=== PATIENT | female | born 1965 | race Caucasian/White ===

== ENCOUNTER 2018-08-25 11:47 | Observation (INO) | payer MEDICARE, SELFPAY ==
[2018-08-25] VITALS (10 sets, daily range): BP systolic 111–154; BP diastolic 69–80; PULSE 66–89; RESP 13–18; TEMP 35.7–37.1; O2SAT 96–100; BMI 42.0; BMI 41.7
--- NOTE | 2018-08-25 12:07 | RAD_ITS ---
STUDY: X-RAY CHEST REASON FOR EXAM: Female, 53 years old. Left upper extremity weakness. TECHNIQUE: Single frontal view of the chest. COMPARISON: Portable AP upright chest x-ray November 01, 2016. FINDINGS: The right chest wall Port-A-Cath seen on previous study has since been removed. Clusters of surgical clips in the soft tissues of the chest roper/breast again noted. The left breast shadow is smaller than the right. The lungs are moderately expanded. There is vaguely defined focal increased density in the left midlung, an area of borderline confluent stranding densities on previous study. There is subsegmental crowding in the medial right base. There is no demonstrated pleural abnormality. Normal size heart. Normal mediastinum and herson. Normal visualized pulmonary arteries. There is faint atherosclerotic calcification of the aortic arch. Normal visualized thoracic spine. Normal visualized ribs, clavicles, and shoulders. Surgical clips consistent with prior cholecystectomy project in the right upper quadrant of the abdomen. There are additional surgical clips projecting randomly in the left upper quadrant. RAD/Chest 1 View IMPRESSION: 1. Vague left midlung density, which may be a site of chronic change. Active infection or other pathology difficult to exclude. 2. Right chest wall Port-A-Cath has been removed since previous study. Postsurgical changes in the bilateral chest roper again noted. Electronically Signed: Franco Grimaldo MD at 13:23 EDT , Service support ,
--- NOTE | 2018-08-25 12:07 | CT_ITS ---
STUDY: CT BRAIN WITHOUT CONTRAST REASON FOR EXAM: Female, 53 years old. Left paresthesia. History of breast cancer, asthma, cholecystectomy. RADIATION DOSAGE (If Supplied By Facility): CTDIvol = ( 44.99 ) mGy, DLP = ( 728.62 ) mGycm TECHNIQUE: Transaxial CT imaging of the brain was performed without administration of intravenous contrast material. Individualized dose optimization techniques were used for this CT. COMPARISON: Axial images noncontrast CT brain November 01, 2016. FINDINGS: Normal soft tissue structures. Normal calvarium. Normal size ventricles and extra-axial spaces for the patient's age. Normal white matter tracts of the cerebral hemispheres. Normal basal ganglia and thalami. Normal brainstem. Normal cerebellum. There is no intracranial hemorrhage. There are no findings of an acute ischemic infarction. There is mild mucoperiosteal thickening in the bilateral maxillary sinuses, the right ethmoid air cells, the anterior margin of the right sphenoid sinus, and inferior recess of the right frontal sinus. CT/Brain/Head without Contrast IMPRESSION: 1. Normal unenhanced CT scan of the brain. 2. Chronic paranasal sinusitis, as described. Electronically Signed: Franco Grimaldo MD at 13:20 EDT , Service support ,
--- NOTE | 2018-08-25 12:07 | EKG12_ITS ---
Test Reason : NUMBNESS N TINGLING Blood Pressure : / mmHG Vent. Rate : 079 BPM Atrial Rate : 079 BPM P-R Int : 174 ms QRS Dur : 076 ms QT Int : 402 ms P-R-T Axes : 044 -07 036 degrees QTc Int : 460 ms Normal sinus rhythm Poor R- wave progression Inferior [place], age undetermined, cannot be excluded Abnormal ECG Confirmed by MARYANNE BIGGS, AUNG ([id number]), clinical editor SHAUNA DAS ([id number]) on 08/26/2018 12:30:11 PM Referred By: Gavin Astudillo Confirmed By:AUNG MADDEN MD
--- NOTE | 2018-08-25 12:39 | ED.DCSUM_ITS ---
History of Present Illness Chief Complaint: Numb/Ting Narrative: Patient presenting for evaluation secondary to numbness. Patient reports that about 3:00 this morning when she was getting ready for work she started to notice that she was having left-sided numbness. She reports that this was associated with numbness of the left side of her face, left side of her tongue, and a fullness feeling of her tongue. She also reports that she had numbness in her fingers on the left, and her left lower leg. It was not really associated with any weakness. She denies any visual changes or speech difficulty. Patient has a underlying history of diabetes and hypertension. She does report that about 2 years ago she had a presentation of symptoms similar on the right which she was told was secondary to either a TIA or radiculopathy. She denies any history of stroke. She denies any recent head injuries. Review of systems otherwise negative. Past Medical History - Allergies and Home Meds Allergies/Adverse Reactions: Allergies atropine [From Lomotil] Allergy (Severe, Verified 08/25/18 14:56) Hives diphenoxylate [From Lomotil] Allergy (Severe, Verified 08/25/18 14:56) Hives SURGICAL ROSA Allergy (Uncoded 08/25/18 11:50) Swelling Smoking Status: Never smoker - Family History Maternal Family History: Family History (Last Reviewed 08/25/18 @ 14:32 by Gavin Astudillo DO) Unknown CVA (cerebral vascular accident) Cancer Kidney disease Hypertension High cholesterol Diabetes Asthma Arthritis Review of Systems All systems negative except as indicated General: Denies: Fever Eyes: Denies: Visual changes - bilaterally Cardiovascular: Denies: Chest pain Musculoskeletal: Denies: Myalgias Neurological: Reports: Parasthesia, Numbness. Denies: Headache, Weakness [id number] Vital Signs/Narrative: Vital Signs Temp Pulse Resp BP Pulse Ox 08/25/18 12:38 97 08/25/18 12:29 81 13 111/72 96 08/25/18 11:48 96.3 F L 89 16 154/80 H 97 - NIHSS Level of Consciousness: Alert Ask Patient Current Month & Age: Both correct Ask Patient fo Close Eyes & Make a Fist: Performs both tasks correctly. Lateral Gaze: Normal [id number] eye movement Visual Calderón: Normal visual calderón Facial Weakness: Normal symmetrical movements Arm Weakness - Left: No drift Arm Weakness - Right: No drift Leg Weakness - Left: No drift Leg Weakness - Right: No drift Coordination: Normal or no movement Sensation (feeling): Decreased Sensation - Decreased sensation of the left side of the face, and the left leg Speech (content): Correct full sentences Speech (slurring): No slurring Neglect: Sees & feels when both sides tested at once Total: 1 General: Well nourished, Well developed Head: Normocephalic, Atraumatic Eyes: Perrl, EOMI ENT: Moist mucous membranes Neck: Supple, Nontender Cardiovascular: Regular rate, Regular rhythm, No murmurs Respiratory: No distress, CTA bilaterally Abdomen: Soft, Nontender Back: Nontender, Normal Inspection Extremities: No edema Skin: Normal color, No rash Neurological: Alert, Oriented x3 Psychological: Normal affect Diagnostic/Tx/Re-eval - EKG Follow-up EKG Interpretation: - - Sinus rhythm of [address] segments, normal T waves. No evidence of acute ischemia or arrhythmia. - Medical Decision Making Patient presented secondary to left-sided numbness. Her NIH stroke scale is 1, a stroke team was not activated. Stroke work-up was obtained and was ultimately found to be negative including CT brain, EKG, CBC chemistry and coagulation studies. Given the persistence of the patient's symptoms and the fact that she has never had a stroke work-up in the past believe that she warrants admission. I discussed this with the hospitalist. ED Disposition - Plan for ED Patient: Disposition: Acute Care [facility] Diagnosis: Numbness
[2018-08-25 12:46] LABS: Bedside Glucose 204 mg/dL (70-110)
[2018-08-25 12:49] LABS: Absolute Lymphocyte Count 1.57 X10^3/ul (0.83-4.51); Absolute Neutrophil Count 2.8 X10^3/uL (2.0-7.7); Basophil# 0.02 X10^3/uL; Basophil% 0.4 % (0-1); Eosinophil# 0.42 X10^3/uL; Eosinophils% 8.3 % (0-5); Hematocrit 38.8 % (37-47); Hemoglobin 12.9 g/dl (12.0-15.0); Lymphocyte # 1.57 X10^3/ul (4.0); Lymphocyte % 31.2 % (19-41); Mean Corp Hgb Conc 33.2 g/gl (32-36); Mean Corpuscular Hgb 28.3 pg (27.0-32.0); Mean Corpuscular Volume 85.1 fL (81-99); Monocyte# 0.19 X10^3/uL; Monocyte% 3.8 % (0-10); Neutrophil # 2.83 X10^3/uL (2.7-7.7); Neutrophil % 56.1 % (47-70); POSITIVE COUNT NO; POSITIVE DIFFERENTIAL NO; POSITIVE MORPHOLOGY NO; Platelet Count 227 K/mm3 (150-450); RBC Distribution Width CV 13.3 % (11.6-14.6); Red Blood Count 4.56 M/mm3 (4.2-5.4)
[2018-08-25 12:58] LABS: Prothrombin Time (Protime)PT. 13.2 SECONDS (11.7-14.9)
[2018-08-25 12:59] LABS: Partial Thromboplast Time 27.1 Seconds (24.1-36.2)
[2018-08-25 13:05] LABS: Anion Gap 8 (5-15); BUN 17 mg/dL (7-18); BUN/Creat Ratio 25.4 RATIO (10-20); Calcium,Total 8.5 mg/dL (8.5-10.1); Chloride 106 mmol/L (98-107); Creatinine, Serum 0.67 mg/dL (0.55-1.02); EST Glomerular Filtration Rate 98 mL/min (>60); Est Glom Filt Rate - Afr Amer 119 mL/min (>60); Estimated Creatinine Clearance 73.28 ml/min; Glucose 213 mg/dL (74-106); Potassium 3.7 mmol/L (3.5-5.1); Sodium Level 144 mmol/L (136-145)
--- NOTE | 2018-08-25 14:29 | HP.PCM_ITS ---
Problem List (1) CVA (cerebral vascular accident) Status: Acute Qualifiers: CVA mechanism: unspecified Qualified Code(s): I63.9 - Cerebral infarction, unspecified History of Present Illness Date of Admission: 08/25/18 Chief Complaint: left sided paresthesias. The patient is a 53 year old F presents today with left-sided paresthesias. Patient was in her normal state of health got up this morning to get ready for work and then noted that her left side of her face was numb and her tongue felt heavy. Patient also noted numbness and tingling in her left upper and lower extremities. Patient states that she has had a headache as well since yesterday, typically does not get headaches. States that her headache is frontal as well as posterior. Patient is never had a stroke before. Patient presented to the emergency room and underwent a work-up that was unremarkable. The hospital service was contacted for admission for further stroke evaluation. [] Past Medical History Medical History: Medical History (Last Reviewed 08/25/18 @ 14:32 by Gvain Astudillo DO) Anxiety F41.9 Arthritis M19.90 Asthma J45.909 Back problem M53.9 Breast cancer C50.919 Carpal tunnel syndrome G56.00 Chronic headaches R51 Depression F32.9 Diabetes type 2, controlled E11.9 Gallstones K80.20 History of pneumonia Z87.01 Vision problems H54.7 d2 deficiency hx frequent falls Allergies atropine [From Lomotil] Allergy (Severe, Verified 08/25/18 11:50) Unknown diphenoxylate [From Lomotil] Allergy (Severe, Verified 08/25/18 11:50) Unknown SURGICAL ROSA Allergy (Uncoded 08/25/18 11:50) Swelling Home Medications: Ambulatory Orders Medication Instructions Recorded Albuterol IH (ProAir) [Proair Hfa 2 puff INHALATION Q4H PRN PRN 11/01/16 (SP)Vent Pts] Anastrozole [Arimidex] 1 mg PO DAILY 11/01/16 Ergocalciferol [Vitamin D] 50,000 unit PO TUFR 11/01/16 Fluoxetine [Prozac] 20 mg PO BID 11/01/16 Glimepiride [Amaryl] 2 mg PO DAILY 11/01/16 Meloxicam [Mobic] 15 mg PO DAILY 11/01/16 Metformin HCl 500 mg PO BID 11/01/16 Multivitamins,Ther W-Minerals 1 tab PO DAILY 11/01/16 [Multivitamin With Minerals] Omeprazole [Prilosec] 20 mg PO BID 11/01/16 busPIRone [Buspar] 15 mg PO TID 11/01/16 acetaminophen 325 mg capsule 500 mg PO Q4H PRN 02/03/17 blood sugar diagnostic strips See Dose Instructions .ROUTE 02/03/17 .MEDSUPPLY #20 ea blood-glucose meter kit See Dose Instructions .ROUTE 02/03/17 .MEDSUPPLY #1 ea fluoxetine 40 mg capsule 40 mg PO QDAY 02/03/17 ibuprofen 200 mg capsule 200 mg PO Q4H PRN cap 02/03/17 insulin glargine (U-100) 100 44 unit SC QHS ml 02/03/17 unit/mL (3 mL) subcutaneous pen ketoconazole 2 % topical cream 1 applic TOPICAL QDAY 02/03/17 pen needle, diabetic 31 gauge x See Dose Instructions .ROUTE 02/03/1707/09 .MEDSUPPLY #30 ea Surgical History: Surgical History (Last Reviewed 08/25/18 @ 14:32 by Gavin Astudillo DO) H/O bilateral mastectomy Z98.890, Z90.13 H/O hernia repair Z98.890, Z87.19 H/O: Z98.891 History of tonsillectomy Z98.890, Z90.89 Hx of cholecystectomy Z98.890, Z90.49 Status post bilateral breast reconstruction Z98.890 Smoking Status: Never smoker - *Family History Maternal Family History: Family History (Last Reviewed 08/25/18 @ 14:32 by Gavin Astudillo DO) Unknown CVA (cerebral vascular accident) Cancer Kidney disease Hypertension High cholesterol Diabetes Asthma Arthritis Review of Systems Constitutional: Denies: Chills, Fever, Weight Change Eyes: Reports: Blurred vision - Chronic but does appear to be worse today. Denies: Double vision HEENT: Denies: Head Aches, Sinus Congestion, Sinus Drainage Cardiovascular: Denies: Chest Pain, Palpitations Respiratory: Denies: Cough, Shortness of breath at rest, Sputum production Gastrointestinal: Denies: Abdominal Pain, Nausea, Vomiting Genitourinary: Denies: Dysuria Musculoskeletal: Denies: Joint Pain, Joint Tenderness Skin: Denies: Rash, Wounds Neurological: Reports: Blurred vision. Denies: Balance problems, Double vision, Change in Speech Psychiatric: Reports: Anxiety, Depression Endocrine: Denies: Change in Body Habitus, Heat/ Cold Intolerance Hematologic/ Lymphatic: Denies: Easy Bruising, Easy Bleeding, Hx of blood clot Comment: A 10 point review of systems were negative except as mentioned in the history of present illness and the other review of systems. VTE Information - Inpt Only VTE Present on Admission: No VTE Mechan Device Prophylaxis: None VTE Pharm Prophylaxis ordered?: No Reason prophylaxis not ordered:: Procedure Not Indicated Patient Problems: Active and Suspected Problems (Last Reviewed 02/04/17 @ 07:56 by Claudia Lee) CVA (cerebral vascular accident) (Acute) - Physical Exam General: Alert, No apparent distress HEENT: Atraumatic, PERRLA, EOMI, Normocephalic Oral: Moist Mucosa, No Gingival or Mucosal Lesions/ Ulcerations, - - Edentulous Neck: Negative Carotid Bruits, No Nuchal Rigidity, Thyroid Normal Size and Texture Lungs: Clear to auscultation, Normal air movement, No rhonchi, No wheeze, No rales Cardiovascular: Regular rate, Regular Rhythm, Normal S1, Normal S2, No murmurs Abdomen: Bowel Sounds Present, Soft, Non Tender, Non-Distended, No Hepato- splenomegaly Extremities: No edema, No Calf Tenderness Skin: No rashes, No breakdown Musculoskeletal: No Tenderness to Palpation of Joints or Extremities, No Muscle Wasting Lymphatic: No Cervical, Supraclavicular, or Inguinal Adenopathy Neurological: Cranial nerves II-XII grossly intact, Motor Exam 5/5 strength throughout - Strength 5 out of 5 in right upper extremity and right lower extremity was 4 out of 5 with in the left upper and left lower extremity was just some very mild unsteadiness, Coordination normal Psych/Mental Status: Normal Affect, Appropriate Vital Signs Temp Pulse Resp BP Pulse Ox 35.7 C L 78 16 125/69 H 97 08/25/18 11:48 08/25/18 12:38 08/25/18 12:38 08/25/18 12:38 08/25/18 12:38 Oxygen Delivery Method Room Air Weight: 100.8 kg Body Mass Index (BMI) 42.0 Finger Stick Blood Glucose 204 Laboratory Tests Past 24 Hrs 08/25/18 08/25/18 08/25/18 12:29 12:30 12:30 WBC 5.0 RBC 4.56 Hgb 12.9 Hct 38.8 MCV 85.1 MCH 28.3 MCHC 33.2 RDW 13.3 RDW Differential 41.0 Plt Count 227 MPV 9.0 Immature Gran % (Auto) 0.200 Neut % (Auto) 56.1 Lymph % (Auto) 31.2 [place] % (Auto) 3.8 Eos % (Auto) 8.3 H Baso % (Auto) 0.4 Absolute Neuts (auto) 2.8 Absolute Lymphs (auto) 1.57 Total Counted Not Reportable PT 13.2 INR 1.0 APTT 27.1 Sodium Potassium Chloride Carbon Dioxide Anion Gap BUN Creatinine Estim Creat Clear Calc Est GFR (MDRD) Af Amer Est GFR (MDRD) Non-Af BUN/Creatinine Ratio Glucose Calcium Troponin I POC Glucose 204 H 08/25/18 12:30 WBC RBC Hgb Hct MCV MCH MCHC RDW RDW Differential Plt Count MPV Immature Gran % (Auto) Neut % (Auto) Lymph % (Auto) [place] % (Auto) Eos % (Auto) Baso % (Auto) Absolute Neuts (auto) Absolute Lymphs (auto) Total Counted PT INR APTT Sodium 144 Potassium 3.7 Chloride 106 Carbon Dioxide 30.0 Anion Gap 8 BUN 17 Creatinine 0.67 Estim Creat Clear Calc 73.28 Est GFR (MDRD) Af Amer 119 Est GFR (MDRD) Non-Af 98 BUN/Creatinine Ratio 25.4 H Glucose 213 H Calcium 8.5 Troponin I < 0.015 POC Glucose POC Glucose 08/25/18 12:29 POC Glucose 204 H EKG reviewed and showed normal sinus rhythm with no acute changes Clinical Impression(s) from Imaging Studies Brain CT 08/25/18 12:07 IMPRESSION: 1. Normal unenhanced CT scan of the brain. 2. Chronic paranasal sinusitis, as described. Electronically Signed: Franco Grimaldo MD at 13:20 EDT , Service support , Chest X-Ray 08/25/18 12:07 IMPRESSION: 1. Vague left midlung density, which may be a site of chronic change. Active infection or other pathology difficult to exclude. 2. Right chest wall Port-A-Cath has been removed since previous study. Postsurgical changes in the bilateral chest roper again noted. Electronically Signed: Franco Grimaldo MD at 13:23 EDT , Service support , Assessment/Plan All Active Problems (Last Reviewed 02/04/17 @ 07:56 by Claudia Lee) CVA (cerebral vascular accident) (Acute) Diabetes type 2, uncontrolled (Acute) 1. Suspected acute stroke * Patient with left-sided paresthesias and weakness * Given patient's risk factors, family history and diabetes, we will proceed w ith the remainder of stroke work-up: That will include MRI of the brain, MRA of the head neck, echocardiogram, physical, occupational, and speech therapies. Neurology consultation. * Additionally, we will check fasting lipid panel * Will start patient on aspirin * Patient did have an CTA of her head neck back in 2017 that did show minimal plaque at the origin of the right ICA at that time 2. Diabetes mellitus type 2 * Continue with her home medications * Add sliding scale insulin 3. VTE prophylaxis: As patient is observation status, she is low risk. Therefore VTE prophylaxis not indicated at this time. Code Visit OBSV E&M: 28014 Initial observation care L3
--- NOTE | 2018-08-25 14:37 | CASEMGMT ---
RN CM Assessment Introduced role of RN CM to patient.? Patient is alert, oriented and able?to participate in RN CM Assessment. ?Care providers, pharmacy, and demographics verified. Presentation: Lt side numbness started today around 0300 Admit Dx: Lt Side Paresthesias Re-Admit: No Barriers/Issues: None PCP: Jada Burch Specialists: ONC- Dr Gunter & Lanie Bob, ASSISTANT PRINCIPAL. Endo- Dr Boaz Ojeda [facility] Rx Benefit:?Yes LNOK: Brother Darrin Rae LW/HPOA: No, Would like information Living Arrangements:?Lives alone in a Mobile Home, 3 steps to enter home. ADL?s: Independent with ambulation and ADLs Transportation: Drives, drove self to hospital and plans to drive on [place] DME: CPAP- has not used x2 months, states has a nasal one and it she feels like she cannot breathe, states needs to contact the agency but cannot recall the company name from where she got it. Glucometer. HHC: None SNF: None Goal: Home, does not think will have any needs. Denies questions/concerns. Aware CM remains available for any emerging needs. DC PLAN: Home with no anticipated needs identified at this time. LISY Wood
--- NOTE | 2018-08-25 15:02 | ECHOCS_ITS ---
Reason For Study: TIA/CVA Procedure This was a 2D Doppler, Color Flow transthoracic echocardiogram. Contrast injection was performed. Strain not performed due to technically difficult study. Exam performed portable in patient room. Left Ventricle Normal size and thickness. The estimated ejection fraction is 65 %. Stage 1 diastolic dysfunction. No regional wall motion abnormalities noted. Right Ventricle Normal size and thickness. Normal systolic function. Atria Normal left atrium. Normal right atrium. Normal atrial septum. Bubble contrast study negative for right to left interatrial shunt. Mitral Valve The mitral valve is structurally normal. No prolapse or stenosis seen. Tricuspid Valve Normal tricuspid valve. Trivial tricuspid valve insufficiency. Right ventricular systolic pressure estimated to be 26 mmHg. Aortic Valve Normal aortic valve. Trisinus/trileaflet aortic valve. Pulmonic Valve Normal pulmonic valve. Great Vessels Normal aortic root. Normal arch. Normal inferior vena cava. Inferior vena cava collapse with sniff. Pericardium/Pleural No pericardial effusion. Medication Performed a rapid injection of agitated mix of 9 cc saline and 1cc air to assess for atrial septal defect. Diluted definity 3ml given slow IV push to enhance endocardial definition. MMode/2D Measurements & Calculations LVIDd: 4.4 cm IVSd: 1.1 cm Ao root diam: 2.7 cm LVIDs: 2.7 cm LVPWd: 0.82 cm RVDd: 4.1 cm FS: 39.2 % LAV(MOD-bp): 46.7 ml LVAd ap4: 28.1 cm2 SV(MOD-sp4): 56.9 ml LAV(MOD-bp) Indexed: 23.7 ml/m2 EDV(MOD-sp4): 85.8 ml LAV(MOD-sp2): 53.2 ml EDV(sp4-el): 90.4 ml LAV(MOD-sp4): 40.5 ml LVAs ap4: 14.9 cm2 ESV(MOD-sp4): 28.9 ml ESV(sp4-el): 30.0 ml EF(MOD-sp4): 66.3 % EF(sp4-el): 66.9 % SV(sp4-el): 60.5 ml LA A4 area: 16.1 cm2 LA dimension(2D): 4.1 cm RA A4 area: 15.9 cm2 Doppler Measurements & Calculations MV E max jered: 99.3 cm/sec Lat Peak E' Jered: 10.4 cm/sec Med Peak E' Jered: 7.5 cm/sec MV A max jered: 105.6 cm/sec E/E' lat: 9.6 E/E' med: 13.3 MV E/A: 0.94 Ao V2 max: 155.5 cm/sec LV V1 max: 112.8 cm/sec PA V2 max: 117.8 cm/sec Ao max P.7 mmHg LV V1 max P.1 mmHg Ao V2 mean: 102.5 cm/sec Ao mean P.8 mmHg Ao V2 VTI: 33.5 cm TR max jered: 227.4 cm/sec TR max P.7 mmHg Interpretation Summary The estimated ejection fraction is 65 %. Stage 1 diastolic dysfunction. Bubble contrast study negative for right to left interatrial shunt. Trivial tricuspid valve insufficiency. Right ventricular systolic pressure estimated to be 26 mmHg. The study was technically difficult. Contrast injection was performed. There is no comparison study available. Ordering Physician: Gavin Astudillo Referring Physician: Jada Burch Performed By: Deepa Maldonado, KAPIL, RVT
--- NOTE | 2018-08-25 15:02 | MRI_ITS ---
STUDY: MRI BRAIN WITH AND WITHOUT CONTRAST REASON FOR EXAM: Female, 53 years old. Left facial and arm numbness history of breast cancer TECHNIQUE: Standardized multiplanar fat and water weighted pulse sequences were obtained. 20 IV Dotarem was administered for the contrast portion of the examination. COMPARISON: None. FINDINGS: Normal size of the ventricles and extra-axial spaces for the patient's age. Normal white matter tracts of the supratentorial brain. Focal increased signal intensity within the right ventral micky without mass effect or restricted diffusion consistent with subacute to chronic ischemic changes. Normal bilateral basal ganglia. Normal thalami. There is no extra-axial fluid accumulation. Normal flow voids within the major intracranial circulation suggesting patency by spin echo criteria. Normal venous enhancement. There is no enhancing intra-axial or extra-axial abnormality. Normal sella turcica, pituitary gland, infundibular stalk, optic chiasm and hypothalamus. Normal tectal plate and pineal gland. Normal midbrain, and medulla. Normal cerebellum. Normal basal cisterns. Normal bilateral temporal bones. Normal bilateral internal auditory canals. No demonstrated orbital abnormality, within the constraints of a routine brain study. Mild mucosal thickening of the bilateral maxillary ethmoid and sphenoid sinuses. Normal calvarium and skull base. Normal visualized soft tissue structures. Normal visualized upper cervical spine. MRI/Brain W/WO Contrast IMPRESSION: Findings consistent with subacute to chronic ischemic changes within the right micky without evidence for acute infarction. No enhancement to suggest metastatic disease Electronically Signed: Garret Bowen MD at 20:32 EDT , Service support ,
--- NOTE | 2018-08-25 15:02 | MRI_ITS ---
STUDY: MRA NECK WITH AND WITHOUT CONTRAST REASON FOR EXAM: Female, 53 years old. Left facial and arm numbness TECHNIQUE: 3-D [id number] (TOF) imaging was performed in an 1.5 T MRI scanner. 20 IV Dotarem was administered for the contrast enhanced images. COMPARISON: None. FINDINGS: RIGHT CAROTID ARTERIES: Normal right common carotid artery (CCA). Normal right common carotid bulb. Normal origin of the right internal carotid (ICA) artery without a hemodynamically significant stenosis. Normal visualized cervical portion of the right internal carotid artery. Normal origin of the right external carotid artery (ECA). LEFT CAROTID ARTERIES: Normal left common carotid artery (CCA). Normal left common carotid bulb. Normal origin of the left internal carotid (ICA) artery without a hemodynamically significant stenosis. Normal visualized cervical portion of the left internal carotid artery. Normal origin of the left external carotid artery (ECA). VERTEBRAL ARTERIES: Normal antegrade flow within the bilateral vertebral artery without a hemodynamically significant stenosis. MRI/MRA Neck WITH and W/O Contrast IMPRESSION: Normal bilateral cervical carotid and vertebral arteries. Electronically Signed: Garret Bowen MD at 20:32 EDT , Service support ,
--- NOTE | 2018-08-25 15:02 | MRI_ITS ---
STUDY: MRA OF THE HEAD WITHOUT CONTRAST REASON FOR EXAM: Female, 53 years old. Left facial and arm numbness TECHNIQUE: 3-D [id number] (TOF) imaging was performed with MIPs. The study was performed unenhanced. COMPARISON: None. FINDINGS: Normal bilateral petrous carotid arteries. Normal right cavernous carotid artery with a normal supraclinoid bifurcation. Normal left cavernous carotid artery with a normal supraclinoid bifurcation. Normal right A1 segments of the anterior cerebral artery. Normal left A1 segments of the anterior cerebral artery. Anterior communicating artery not visualized consistent with normal variant.). Normal bilateral A2 segments of the anterior cerebral arteries. Normal right M1 and M2 segments of the middle cerebral arteries, with a normal M1 bifurcation. Normal left M1 and M2 segments of the middle cerebral arteries, with a normal M1 bifurcation. Posterior communicating arteries are not visualized consistent with normal variant Normal bilateral vertebral arteries. Normal basilar artery with a normal basilar bifurcation. The visualized bilateral superior cerebellar (SCA) arteries are normal. Normal bilateral P1, P2 and visualized P3 segments of the posterior cerebral arteries. There is no demonstrated aneurysm of the [place]. There is no major vessel occlusion or hemodynamically significant stenosis. There is no demonstrated abnormality of the visualized brain. MRI/MRA Head ONLY without Contrast IMPRESSION: Normal MRA of the head Electronically Signed: Garret Bowen MD at 20:06 EDT , Service support ,
--- NOTE | 2018-08-25 16:05 | CON.PCM_ITS ---
Problem List (1) Numbness Status: Acute (2) Migraine Status: Chronic (3) Status migrainosus Status: Acute Reason for Consult Date of Consultation: 08/25/18 Reason for Consultation: Headache and numbness History of Present Illness: The patient is a 53 year old F PMH DM, history of migraines, history of bilateral breast cancer status post chemotherapy and radiation, surgery, depression/anxiety admitted with left-sided numbness. Per patient she woke up this morning 08/25/2018 at around 3 AM for her work and felt that her left face, left arm and left toes and the feet were numb, she also had headaches which were frontal as well as occipital, at present has 8/10 of headaches, per patient her headache started yesterday 08/24/2018, has some photophobia but denies any nausea or visual disturbances. Per patient she has migraine headaches about once a month, generally on the vertex, with photophobia phonophobia and lasting hours. At present patient denies any focal motor weakness, visual disturbances, speech disturbances, dizziness. Lives alone, does not take aspirin at baseline, denies any falls and does drive. [] Past Medical History Past Medical History (Chronic Problems): Chronic Problems (Last Reviewed 08/25/18 @ 14:32 by Gavin Astudillo DO) Migraine (Chronic) Medical History: Medical History (Last Reviewed 08/25/18 @ 14:32 by Gavin Astudillo DO) Anxiety F41.9 Arthritis M19.90 Asthma J45.909 Back problem M53.9 Breast cancer C50.919 Carpal tunnel syndrome G56.00 Chronic headaches R51 Depression F32.9 Diabetes type 2, controlled E11.9 Gallstones K80.20 History of pneumonia Z87.01 Vision problems H54.7 d2 deficiency hx frequent falls Allergies atropine [From Lomotil] Allergy (Severe, Verified 08/25/18 14:56) Hives diphenoxylate [From Lomotil] Allergy (Severe, Verified 08/25/18 14:56) Hives SURGICAL ROSA Allergy (Uncoded 08/25/18 11:50) Swelling Home Medications: Ambulatory Orders Medication Instructions Recorded Albuterol IH (ProAir) [Proair Hfa 2 puff INHALATION Q4H PRN PRN 11/01/16 (SP)Vent Pts] Anastrozole [Arimidex] 1 mg PO DAILY 11/01/16 Ergocalciferol [Vitamin D] 50,000 unit PO TUFR 11/01/16 Meloxicam [Mobic] 15 mg PO DAILY 11/01/16 Multivitamins,Ther W-Minerals 1 tab PO DAILY 11/01/16 [Multivitamin With Minerals] Omeprazole [Prilosec] 20 mg PO BID 11/01/16 busPIRone [Buspar] 15 mg PO TID 11/01/16 fluoxetine 40 mg capsule 40 mg PO DAILY 02/03/17 Canagliflozin [Invokana] 300 mg PO DAILY 08/25/18 Empagliflozin [Jardiance] 25 mg PO DAILY 08/25/18 Fluticasone 0.05% [Flonase Nasal 2 spray NASAL DAILY 08/25/18 [place]] Insulin Degludec [Tresiba 30 units SQ DAILY 08/25/18 Flextouch U-100] Magnesium Oxide [Mag-Ox 400] 400 mg PO DAILY 08/25/18 buPROPion tablets [Wellbutrin 75 mg PO BID 08/25/18 tablets] metFORMIN (XR) [Glucophage Xr] 1,000 mg PO DAILY 08/25/18 Surgical History: Surgical History (Last Reviewed 08/25/18 @ 14:32 by Gavin Astudillo DO) H/O bilateral mastectomy Z98.890, Z90.13 H/O hernia repair Z98.890, Z87.19 H/O: Z98.891 History of tonsillectomy Z98.890, Z90.89 Hx of cholecystectomy Z98.890, Z90.49 Status post bilateral breast reconstruction Z98.890 Smoking Status: Never smoker Tobacco Use: Secondhand - *Family History Maternal Family History: Family History (Last Reviewed 08/25/18 @ 14:32 by Gavin Astudillo DO) Unknown CVA (cerebral vascular accident) Cancer Kidney disease Hypertension High cholesterol Diabetes Asthma Arthritis Review of Systems Constitutional: Reports: - - Complete ROS negative except as documented in HPI Patient Problems: Active and Suspected Problems (Last Reviewed 08/25/18 @ 14:32 by Gavin Astudillo DO) CVA (cerebral vascular accident) (Acute) Numbness (Acute) Status migrainosus (Acute) - Physical Exam General: Alert HEENT: Normocephalic Neck: Supple Lungs: Normal air movement Cardiovascular: Normal S1, Normal S2 Abdomen: Bowel Sounds Present Extremities: No cyanosis Neurological: - - Conscious, alert, CN II through XII grossly intact except left facial mild sensory loss, power 5/5 both upper and lower extremities, no cerebellar signs, no sensory loss except for mild facial sensory loss in the left side, gait deferred, reflexes + B/L B/S/T/K/A, fundus not visualized Psych/Mental Status: Normal Affect Vital Signs Temp Pulse Resp BP Pulse Ox 98.8 F 69 16 129/70 H 96 08/25/18 14:50 08/25/18 14:50 08/25/18 14:50 08/25/18 14:50 08/25/18 15:51 Oxygen Delivery Method Room Air Weight: 100.199 kg Body Mass Index (BMI) 41.7 Finger Stick Blood Glucose 204 Laboratory Tests Past 24 Hrs 08/25/18 08/25/18 08/25/18 12:30 12:30 12:30 WBC 5.0 RBC 4.56 Hgb 12.9 Hct 38.8 MCV 85.1 MCH 28.3 MCHC 33.2 RDW 13.3 RDW Differential 41.0 Plt Count 227 MPV 9.0 Immature Gran % (Auto) 0.200 Neut % (Auto) 56.1 Lymph % (Auto) 31.2 [place]cdonald % (Auto) 3.8 Eos % (Auto) 8.3 H Baso % (Auto) 0.4 Absolute Neuts (auto) 2.8 Absolute Lymphs (auto) 1.57 Total Counted Not Reportable PT 13.2 INR 1.0 APTT 27.1 Sodium 144 Potassium 3.7 Chloride 106 Carbon Dioxide 30.0 Anion Gap 8 BUN 17 Creatinine 0.67 Estim Creat Clear Calc 73.28 Est GFR (MDRD) Af Amer 119 Est GFR (MDRD) Non-Af 98 BUN/Creatinine Ratio 25.4 H Glucose 213 H Calcium 8.5 Troponin I < 0.015 POC Glucose 08/25/18 12:29 POC Glucose 204 H Assessment/Plan All Active Problems (Last Reviewed 08/25/18 @ 14:32 by Gavin Astudillo DO) CVA (cerebral vascular accident) (Acute) Numbness (Acute) Status migrainosus (Acute) Diabetes type 2, uncontrolled (Acute) The patient is a 53 year old F PMH DM, history of migraines, history of bilateral breast cancer status post chemotherapy and radiation, surgery, depression/anxiety admitted with left-sided numbness. Per patient she woke up this morning 08/25/2018 at around 3 AM for her work and felt that her left face, left arm and left toes and the feet were numb, she also had headaches which were frontal as well as occipital, at present has 8/10 of headaches, per patient her headache started yesterday 08/24/2018, has some photophobia but denies any nausea or visual disturbances. Per patient she has migraine headaches about once a month, generally on the vertex, with photophobia phonophobia and lasting hours. At present patient denies any focal motor weakness, visual disturbances, speech disturbances, dizziness. Lives alone, does not take aspirin at baseline, denies any falls and does drive. Impression Likely complicated migraine and status migrainosus Rule out stroke Plan ?MRI brain without contrast, MRA head/neck ?TTE, HbA1c, LDL, ESR ?Depacon 500 mg IV q. 8 hourly for 24 to 48 hours and then stop ?Decadron 4 mg IV every 6 hourly for 24 to 48 hours and then stop ?Magnesium sulfate 1 g IV once ?PT/OT ?GI/DVT prophylaxis ?Further medical management per hospitalist team ?Follow-up with neurology as outpatient in 6 weeks ?Please call with questions if any ?Thank you for allowing us to participate in patient's care and management Code Visit Inpatient E&M: [id number] Init Hosp L3
[2018-08-25] MEDS: metFORMIN HCl 500 MG Tablet PO (16:17)
[2018-08-25] MEDS: Aspirin 325 MG Tablet PO (16:20)
[2018-08-25 16:25] LABS: Bedside Glucose 99 mg/dL (70-110)
[2018-08-25 17:13] LABS: Erythrocyte Sedimentation Rate 21 mm/hr (0-30)
[2018-08-25] MEDS: dexAMETHasone 4 MG/ML Vial IV (17:45)
[2018-08-25] MEDS: Magnesium Sulfate 1 GM in 0.9% Normal Saline 100 ML IV (21:39)
[2018-08-25] MEDS: FLUoxetine 20 MG Capsule PO (21:43)
[2018-08-25] MEDS: busPIRone 5 MG Tablet 15 MG PO (21:44)
[2018-08-25 22:05] LABS: Bedside Glucose 183 mg/dL (70-110)
[2018-08-26] VITALS (7 sets, daily range): BP systolic 105–124; BP diastolic 59–79; PULSE 56–96; RESP 16; TEMP 36.4–36.7; O2SAT 96–98; BMI 41.7
[2018-08-26] MEDS: dexAMETHasone 4 MG/ML Vial IV ×3 (00:27→11:06)
[2018-08-26] MEDS: 0.9% NaCl Peripheral Flush Adult/Peds IV ×3 (00:28→11:06)
[2018-08-26 05:17] LABS: Cholesterol 172 mg/dL (200); High Density Lipoprotein 65 mg/dL; Triglycerides 60 mg/dL; Very Low Density Lipoprotein 12 mg/dL (5-40)
[2018-08-26] MEDS: busPIRone 5 MG Tablet 15 MG PO ×2 (06:42→14:26)
[2018-08-26] MEDS: Insulin Lispro 100 UNIT/ML INSULN.PEN SC ×2 (06:45→11:06)
[2018-08-26 06:55] LABS: Bedside Glucose 166 mg/dL (70-110)
[2018-08-26 08:03] LABS: Hemoglobin A1c 8.1 % (4.2-6.3)
[2018-08-26] MEDS: Aspirin 81 MG TAB.CHEW PO ×2 (08:15)
[2018-08-26] MEDS: Glimepiride 2 MG Tablet PO (08:15)
[2018-08-26] MEDS: Empagliflozin 25 MG Tablet PO (08:57)
[2018-08-26] MEDS: FLUoxetine 20 MG Capsule PO (08:57)
[2018-08-26] MEDS: Pantoprazole Sodium 20 MG Tablet PO (08:57)
[2018-08-26] MEDS: buPROPion 75 MG Tablet PO (08:57)
[2018-08-26] MEDS: Magnesium Oxide 400 MG Tablet PO (08:57)
[2018-08-26] MEDS: Anastrozole 1 MG Tablet PO (09:00)
--- NOTE | 2018-08-26 10:46 | PN.NEURO_ITS ---
Patient Problems: Active and Suspected Problems (Last Reviewed 08/25/18 @ 14:32 by Gavin Astudillo DO) CVA (cerebral vascular accident) (Acute) Numbness (Acute) Status migrainosus (Acute) Subjective: No issues overnight. Per patient she denies any headaches at present. Per patient her numbness has improved and has still some mild numbness in the left face. - Physical Exam General: Alert HEENT: Normocephalic Neck: Supple Lungs: Normal air movement Cardiovascular: Normal S1, Normal S2 Abdomen: Bowel Sounds Present Extremities: No cyanosis Neurological: - - Conscious, alert, CN II through XII grossly intact except left facial mild sensory loss, power 5/5 both upper and lower extremities, no cerebellar signs, no sensory loss except for mild facial sensory loss in the left side, gait deferred, reflexes + B/L B/S/T/K/A, fundus not visualized Psych/Mental Status: Normal Affect Vital Signs Temp Pulse Resp BP Pulse Ox 97.8 F 78 16 105/59 L 96 08/26/18 08:17 08/26/18 08:17 08/26/18 08:17 08/26/18 08:17 08/26/18 08:17 Oxygen Delivery Method Room Air Weight: 100.199 kg Body Mass Index (BMI) 41.7 Finger Stick Blood Glucose 204 Intake and Output for Last 24 Hours 08/24/18 08/25/18 08/26/18 23:59 23:59 23:59 Intake Total 660 / 660 400 / 400 Balance 660 / 660 400 / 400 Laboratory Tests Past 24 Hrs 08/25/18 08/25/18 08/25/18 12:30 12:30 12:30 WBC 5.0 RBC 4.56 Hgb 12.9 Hct 38.8 MCV 85.1 MCH 28.3 MCHC 33.2 RDW 13.3 RDW Differential 41.0 Plt Count 227 MPV 9.0 Immature Gran % (Auto) 0.200 Neut % (Auto) 56.1 Lymph % (Auto) 31.2 [place] % (Auto) 3.8 Eos % (Auto) 8.3 H Baso % (Auto) 0.4 Absolute Neuts (auto) 2.8 Absolute Lymphs (auto) 1.57 Total Counted Not Reportable ESR PT 13.2 INR 1.0 APTT 27.1 Sodium 144 Potassium 3.7 Chloride 106 Carbon Dioxide 30.0 Anion Gap 8 BUN 17 Creatinine 0.67 Estim Creat Clear Calc 73.28 Est GFR (MDRD) Af Amer 119 Est GFR (MDRD) Non-Af 98 BUN/Creatinine Ratio 25.4 H Glucose 213 H Hemoglobin A1c Calcium 8.5 Troponin I < 0.015 Triglycerides Cholesterol LDL Cholesterol VLDL Cholesterol HDL Cholesterol 08/25/18 08/26/18 08/26/18 12:30 04:48 04:48 WBC RBC Hgb Hct MCV MCH MCHC RDW RDW Differential Plt Count MPV Immature Gran % (Auto) Neut % (Auto) Lymph % (Auto) [place] % (Auto) Eos % (Auto) Baso % (Auto) Absolute Neuts (auto) Absolute Lymphs (auto) Total Counted ESR 21 PT INR APTT Sodium Potassium Chloride Carbon Dioxide Anion Gap BUN Creatinine Estim Creat Clear Calc Est GFR (MDRD) Af Amer Est GFR (MDRD) Non-Af BUN/Creatinine Ratio Glucose Hemoglobin A1c 8.1 H Calcium Troponin I Triglycerides 60 Cholesterol 172 LDL Cholesterol 95 VLDL Cholesterol 12 HDL Cholesterol 65 POC Glucose 08/26/18 08/25/18 08/25/18 06:41 21:42 16:15 POC Glucose 166 H 183 H 99 08/25/18 12:29 POC Glucose 204 H Medical Necessity - Tobacco Use Smoking Status: Never smoker Tobacco Use: Secondhand Assessment/Plan All Active Problems (Last Reviewed 08/25/18 @ 14:32 by Gavin Astudillo DO) CVA (cerebral vascular accident) (Acute) Numbness (Acute) Status migrainosus (Acute) Diabetes type 2, uncontrolled (Acute) The patient is a 53 year old F PMH DM, history of migraines, history of bilateral breast cancer status post chemotherapy and radiation, surgery, depression/anxiety admitted with left-sided numbness. Per patient she woke up on 08/25/2018 at around 3 AM for her work and felt that her left face, left arm a nd left toes and the feet were numb, she also had headaches which were frontal as well as occipital, at present has 8/10 of headaches, per patient her headache started 08/24/2018, has some photophobia but denies any nausea or visual disturbances. Per patient she has migraine headaches about once a month, generally on the vertex, with photophobia phonophobia and lasting hours. At present patient denies any focal motor weakness, visual disturbances, speech disturbances, dizziness. Lives alone, does not take aspirin at baseline, denies any falls and does drive. At present per patient her headaches have improved after treatment but continues to have some mild numbness in the left face. Impression Likely complicated migraine and status migrainosus Plan ?MRI brain without contrast-no acute stroke, MRA head/neck-no hemodynamically significant stenosis or occlusion. ?TTE-EF 65%, normal LA size, no PFO, IxM4h-6.1, LDL-95, ESR-21 ?Depacon 500 mg IV q. 8 hourly for 24 to 48 hours and then stop at discharge ?Decadron 4 mg IV every 6 hourly for 24 to 48 hours and then stop at discharge ?Magnesium sulfate 1 g IV once-given yesterday ?PT/OT ?GI/DVT prophylaxis ?Further medical management per hospitalist team ?Follow-up with neurology as outpatient in 6 weeks ?Please call with questions if any ?Thank you for allowing us to participate in patient's care and management
[2018-08-26 11:10] LABS: Bedside Glucose 212 mg/dL (70-110)
--- NOTE | 2018-08-26 14:47 | PCM.DC ---
- Discharge Diagnoses Current Active Problems: Current Active and Chronic Problems (Last Reviewed 08/25/18 @ 14:32 by Gavin Astudillo DO) CVA (cerebral vascular accident) (Acute) Numbness (Acute) Migraine (Chronic) Status migrainosus (Acute) You will use the following diet at home:: Calorie/Carbohydrate Controlled (specify 1200, 1400, etc), Cardiac Your food should be the consistency of: Regular Your liquids should be the consistency of: Regular/Thin Discharge Activity: Return to Normal Activity Call your doctor if you observe: Fever of 101 or Higher, - - Recurrent headache, recurrent unilateral numbness, unilateral weakness, slurred speech, inability to get her words out, facial droop Additional Instructions: The numbness is related to the migraine. The MRI of the brain did not show a stroke. You are on Wellbutrin and one of the side effects of this medication is headaches. If you are having frequent headaches you may want to discuss alternate medications for treatment of depression. Pending Tests on Discharge: none Allergies/Adverse Reactions: Allergies atropine [From Lomotil] Allergy (Severe, Verified 08/25/18 14:56) Hives diphenoxylate [From Lomotil] Allergy (Severe, Verified 08/25/18 14:56) Hives SURGICAL ROSA Allergy (Uncoded 08/25/18 11:50) Swelling Medications to take at Discharge Albuterol IH (ProAir) [Proair Hfa] 2 puff INHALATION Q4H PRN PRN 11/01/16 Anastrozole [Arimidex] 1 mg PO DAILY 11/01/16 Ergocalciferol [Vitamin D] 50,000 unit PO TUFR 11/01/16 Meloxicam [Mobic] 15 mg PO DAILY 11/01/16 Multivitamins,Ther W-Minerals [Multivitamin With Minerals] 1 tab PO DAILY 11/01/16 Omeprazole [Prilosec] 20 mg PO BID 11/01/16 busPIRone [Buspar] 15 mg PO TID 11/01/16 fluoxetine 40 mg capsule 40 mg PO DAILY 02/03/17 Canagliflozin [Invokana] 300 mg PO DAILY 08/25/18 Empagliflozin [Jardiance] 25 mg PO DAILY 08/25/18 Fluticasone 0.05% [Flonase Nasal [place]] 2 spray NASAL DAILY 08/25/18 Insulin Degludec [Tresiba Flextouch U-100] 30 units SQ DAILY 08/25/18 Magnesium Oxide [Mag-Ox 400] 400 mg PO DAILY 08/25/18 buPROPion tablets [Wellbutrin tablets] 75 mg PO BID 08/25/18 metFORMIN (XR) [Glucophage Xr] 1,000 mg PO DAILY 08/25/18 Dexamethasone [Decadron] 4 mg PO Q6H #8 tab 08/26/18 The following prescriptions were given: Dexamethasone [Decadron] 4 mg PO Q6H #8 tab Transmission Status: Pending to [id number] Primary Care Physician: Jada Burch MD [Primary Care Provider] - Please follow up with your Primary Care Physician in: 1-2 weeks Test Results: Test results from this visit will be discussed in further detail at your follow-up appointment, if applicable. Please Follow Up With: Samina Jonas MD When: 6 weeks Proposed Discharge Date: 08/26/18
--- NOTE | 2018-08-26 14:54 | DS.PCM_ITS ---
Discharge Date and Diagnosis - Problem List Patient Problems: Active and Suspected Problems (Last Reviewed 08/25/18 @ 14:32 by Gavin Astudillo DO) Migraine equivalent (Acute) Anxiety and depression (Acute) Date of Admission: 08/25/18 Date of Discharge: 08/26/18 - Primary Discharge Diagnosis Active and Suspected Problems (Last Reviewed 08/25/18 @ 14:32 by Gavin Astudillo DO) Migraine equivalent (Acute) -Numbness left side Status migrainosus (Acute) - Secondary Discharge Diagnosis Chronic Problems (Last Reviewed 08/25/18 @ 14:32 by Gavin Astudillo DO) Dyslipidemia (Chronic) Migraine (Chronic) Diabetes type 2, uncontrolled (Chronic) Has increased metformin to 500mg 3 pills daily, has been drinking less soda, and trying to be active. BG readings now in the 150-170 range. Anxiety/depression Breast cancer Morbid obesity Hospital Course and Treatment Imaging Results: Clinical Impression(s) from Imaging Studies Brain CT 08/25/18 12:07 IMPRESSION: 1. Normal unenhanced CT scan of the brain. 2. Chronic paranasal sinusitis, as described. Electronically Signed: Franco Grimaldo MD at 13:20 EDT , Service support , Chest X-Ray 08/25/18 12:07 IMPRESSION: 1. Vague left midlung density, which may be a site of chronic change. Active infection or other pathology difficult to exclude. 2. Right chest wall Port-A-Cath has been removed since previous study. Postsurgical changes in the bilateral chest roper again noted. Electronically Signed: Franco Grimaldo MD at 13:23 EDT , Service support , Brain MRI 08/25/18 15:02 IMPRESSION: Findings consistent with subacute to chronic ischemic changes within the right micky without evidence for acute infarction. No enhancement to suggest metastatic disease Electronically Signed: Garret Bowen MD at 20:32 EDT , Service support , Head MRA 08/25/18 15:02 IMPRESSION: Normal MRA of the head Electronically Signed: Garret Bowen MD at 20:06 EDT , Service support , Neck MRA 08/25/18 15:02 IMPRESSION: Normal bilateral cervical carotid and vertebral arteries. Electronically Signed: Garret Bowen MD at 20:32 EDT , Service support , Laboratory Tests 08/26/18 08/26/18 08/26/18 Range/Units 11:05 06:41 04:48 WBC (4.4-11.0) K/mm3 RBC (4.2-5.4) M/mm3 Hgb (12.0-15.0) g/dl Hct (37-47) % MCV (81-99) fL MCH (27.0-32.0) pg MCHC (32-36) g/gl RDW (11.6-14.6) % RDW Differential (35.1-43.9) fl Plt Count (150-450) K/mm3 MPV (6.2-12.0) fl Immature Gran % (Auto) (0.0-0.9) % Neut % (Auto) (47-70) % Lymph % (Auto) (19-41) % Dukes % (Auto) (0-10) % Eos % (Auto) (0-5) % Baso % (Auto) (0-1) % Absolute Neuts (auto) (2.0-7.7) X10^3/uL Absolute Lymphs (auto) (0.83-4.51) X10^3/ul Total Counted ESR (0-30) mm/hr PT (11.7-14.9) SECONDS INR APTT (24.1-36.2) Seconds Sodium (136-145) mmol/L Potassium (3.5-5.1) mmol/L Chloride (98-107) mmol/L Carbon Dioxide (21.0-32.0) mmol/L Anion Gap (5-15) BUN (7-18) mg/dL Creatinine (0.55-1.02) mg/dL Estim Creat Clear Calc ml/min Est GFR (MDRD) Af Amer (>60) mL/min Est GFR (MDRD) Non-Af (>60) mL/min BUN/Creatinine Ratio (10-20) RATIO Glucose (74-106) mg/dL Hemoglobin A1c 8.1 H (4.2-6.3) % Calcium (8.5-10.1) mg/dL Troponin I (<0.045) ng/mL Triglycerides ( - 199) mg/dL Cholesterol (200) mg/dL LDL Cholesterol (0-130) mg/dL VLDL Cholesterol (5-40) mg/dL HDL Cholesterol (40 - ) mg/dL POC Glucose 212 H 166 H (70-110) mg/dL 08/26/18 08/25/18 08/25/18 Range/Units 04:48 21:42 16:15 WBC (4.4-11.0) K/mm3 RBC (4.2-5.4) M/mm3 Hgb (12.0-15.0) g/dl Hct (37-47) % MCV (81-99) fL MCH (27.0-32.0) pg MCHC (32-36) g/gl RDW (11.6-14.6) % RDW Differential (35.1-43.9) fl Plt Count (150-450) K/mm3 MPV (6.2-12.0) fl Immature Gran % (Auto) (0.0-0.9) % Neut % (Auto) (47-70) % Lymph % (Auto) (19-41) % Dukes % (Auto) (0-10) % Eos % (Auto) (0-5) % Baso % (Auto) (0-1) % Absolute Neuts (auto) (2.0-7.7) X10^3/uL Absolute Lymphs (auto) (0.83-4.51) X10^3/ul Total Counted ESR (0-30) mm/hr PT (11.7-14.9) SECONDS INR APTT (24.1-36.2) Seconds Sodium (136-145) mmol/L Potassium (3.5-5.1) mmol/L Chloride (98-107) mmol/L Carbon Dioxide (21.0-32.0) mmol/L Anion Gap (5-15) BUN (7-18) mg/dL Creatinine (0.55-1.02) mg/dL Estim Creat Clear Calc ml/min Est GFR (MDRD) Af Amer (>60) mL/min Est GFR (MDRD) Non-Af (>60) mL/min BUN/Creatinine Ratio (10-20) RATIO Glucose (74-106) mg/dL Hemoglobin A1c (4.2-6.3) % Calcium (8.5-10.1) mg/dL Troponin I (<0.045) ng/mL Triglycerides 60 ( - 199) mg/dL Cholesterol 172 (200) mg/dL LDL Cholesterol 95 (0-130) mg/dL VLDL Cholesterol 12 (5-40) mg/dL HDL Cholesterol 65 (40 - ) mg/dL POC Glucose 183 H 99 (70-110) mg/dL 08/25/18 08/25/18 08/25/18 Range/Units 12:30 12:30 12:30 WBC (4.4-11.0) K/mm3 RBC (4.2-5.4) M/mm3 Hgb (12.0-15.0) g/dl Hct (37-47) % MCV (81-99) fL MCH (27.0-32.0) pg MCHC (32-36) g/gl RDW (11.6-14.6) % RDW Differential (35.1-43.9) fl Plt Count (150-450) K/mm3 MPV (6.2-12.0) fl Immature Gran % (Auto) (0.0-0.9) % Neut % (Auto) (47-70) % Lymph % (Auto) (19-41) % Dukes % (Auto) (0-10) % Eos % (Auto) (0-5) % Baso % (Auto) (0-1) % Absolute Neuts (auto) (2.0-7.7) X10^3/uL Absolute Lymphs (auto) (0.83-4.51) X10^3/ul Total Counted ESR 21 (0-30) mm/hr PT 13.2 (11.7-14.9) SECONDS INR 1.0 APTT 27.1 (24.1-36.2) Seconds Sodium 144 (136-145) mmol/L Potassium 3.7 (3.5-5.1) mmol/L Chloride 106 (98-107) mmol/L Carbon Dioxide 30.0 (21.0-32.0) mmol/L Anion Gap 8 (5-15) BUN 17 (7-18) mg/dL Creatinine 0.67 (0.55-1.02) mg/dL Estim Creat Clear Calc 73.28 ml/min Est GFR (MDRD) Af Amer 119 (>60) mL/min Est GFR (MDRD) Non-Af 98 (>60) mL/min BUN/Creatinine Ratio 25.4 H (10-20) RATIO Glucose 213 H (74-106) mg/dL Hemoglobin A1c (4.2-6.3) % Calcium 8.5 (8.5-10.1) mg/dL Troponin I < 0.015 (<0.045) ng/mL Triglycerides ( - 199) mg/dL Cholesterol (200) mg/dL LDL Cholesterol (0-130) mg/dL VLDL Cholesterol (5-40) mg/dL HDL Cholesterol (40 - ) mg/dL POC Glucose (70-110) mg/dL 08/25/18 08/25/18 Range/Units 12:30 12:29 WBC 5.0 (4.4-11.0) K/mm3 RBC 4.56 (4.2-5.4) M/mm3 Hgb 12.9 (12.0-15.0) g/dl Hct 38.8 (37-47) % MCV 85.1 (81-99) fL MCH 28.3 (27.0-32.0) pg MCHC 33.2 (32-36) g/gl RDW 13.3 (11.6-14.6) % RDW Differential 41.0 (35.1-43.9) fl Plt Count 227 (150-450) K/mm3 MPV 9.0 (6.2-12.0) fl Immature Gran % (Auto) 0.200 (0.0-0.9) % Neut % (Auto) 56.1 (47-70) % Lymph % (Auto) 31.2 (19-41) % Dukes % (Auto) 3.8 (0-10) % Eos % (Auto) 8.3 H (0-5) % Baso % (Auto) 0.4 (0-1) % Absolute Neuts (auto) 2.8 (2.0-7.7) X10^3/uL Absolute Lymphs (auto) 1.57 (0.83-4.51) X10^3/ul Total Counted Not Reportable ESR (0-30) mm/hr PT (11.7-14.9) SECONDS INR APTT (24.1-36.2) Seconds Sodium (136-145) mmol/L Potassium (3.5-5.1) mmol/L Chloride (98-107) mmol/L Carbon Dioxide (21.0-32.0) mmol/L Anion Gap (5-15) BUN (7-18) mg/dL Creatinine (0.55-1.02) mg/dL Estim Creat Clear Calc ml/min Est GFR (MDRD) Af Amer (>60) mL/min Est GFR (MDRD) Non-Af (>60) mL/min BUN/Creatinine Ratio (10-20) RATIO Glucose (74-106) mg/dL Hemoglobin A1c (4.2-6.3) % Calcium (8.5-10.1) mg/dL Troponin I (<0.045) ng/mL Triglycerides ( - 199) mg/dL Cholesterol (200) mg/dL LDL Cholesterol (0-130) mg/dL VLDL Cholesterol (5-40) mg/dL HDL Cholesterol (40 - ) mg/dL POC Glucose 204 H (70-110) mg/dL Dr. Rishabh Jonas-neurology Operations: None Procedures: 2-D Echocardiogram - EF 65%, stage I diastolic dysfunction, bubble contrast study negative for right to left intra-atrial shunt, trivial tricuspid valve insufficiency Summary of Care Provided: The patient is a 53 year old F with a past medical history of anxiety/depression, asthma, breast cancer, migraine cephalgia, diabetes mellitus type 2 and morbid obesity who presented to the emergency department at [facility] on 08/25/2018 complaining of numbness in the left face, left upper extremity and left lower extremity. She additionally complained of a headache that started the preceding day. Vital signs at presentation to the emergency room were temperature 96.3, pulse rate 89, blood pressure 154/80, respiratory rate 16 and she was 97% saturated on room air. CBC and differential were normal. BMP was unremarkable. Random blood sugar was 213 and the hemoglobin A1c was 8.1. Troponin was less than 0.015. A noncontrasted CT scan of the brain was normal except for chronic paranasal sinusitis. She was admitted to a monitored bed on the progressive care unit and the stroke protocol was initiated. Consult was ordered with Dr. Jonas. MRI of the brain showed findings consistent with subacute to chronic ischemic changes within the right micky without evidence for acute infarction. There was no enhancement to suggest metastatic disease. MRA of the brain was normal. MRA of the neck showed normal bilateral cervical carotid and vertebral arteries. Echocardiogram showed an ejection fraction of 65% with stage I diastolic dysfunction. The bubble contrast study was negative for right to left intra-atrial shunt. There was no significant valvular heart disease. Dr. Jonas felt that her paresthesias might be secondary to a migraine equivalent. He started Depacon 500 mg IV every 8 hours and Decadron 4 mg IV every 6 hours on 08/25/2018. She was also given 1 g of IV magnesium. The following day she denied headache and the paresthesias in the arm and leg had completely resolved. She still had mild left facial numbness. She was discharged home with a prescription for Decadron 4 mg every 6 hours x8 doses. She was recently started on Wellbutrin in the past 2 weeks and HOGAN is one of the biggest side effects. She has also been experiencing dry eyes and constipation. Give her hx of Migraines Wellbutrin may not be the best choice for an antidepressant. May want to consider Effexor or Cymbalta because these drugs are also not associated with weight gain and the side effect profile is more favorable. She will follow-up in the office with Dr. Esquivel in the next 1 to 2 weeks and will follow up with Dr. Jonas in 6 weeks. She was instructed to stay well-hydrated. PHYSICAL EXAM: GENERAL: alert, oriented X 3, Cooperative, NAD ORAL: moist mucosa, no mucosal lesions NECK: No JVD, supple, trachea midline LUNGS: CTA, symmetric chest expansion HEART: RRR, Normal S1 and S2, no rub, no gallop ABDOMEN: soft, NT, ND, BS present, no guarding with palpation EXTREMITIES: no edema, no cyanosis, no calf tenderness SKIN: No rashes, no breakdown NEUROLOGIC: no focal neurologic deficits PSYCH: appropriate, normal affect, pleasant This note was generated with [employer] dictation software. It may contain incorrect words, spelling, and punctuation that were not noted in checking the note before signing. Patient Problems: Active and Suspected Problems (Last Reviewed 08/25/18 @ 14:32 by Gavin Astudillo DO) Migraine equivalent (Acute) Anxiety and depression (Acute) - Physical Exam Vital Signs Temp Pulse Resp BP Pulse Ox 98.0 F 91 16 116/67 96 08/26/18 14:15 08/26/18 14:15 08/26/18 14:15 08/26/18 14:15 08/26/18 14:15 Oxygen Delivery Method Room Air Weight: 220 lb 14.416 oz Body Mass Index (BMI) 41.7 Finger Stick Blood Glucose 204 Intake and Output for Last 24 Hours 08/24/18 08/25/18 08/26/18 23:59 23:59 23:59 Intake Total 660 / 660 830.4 / 830.4 Balance 660 / 660 830.4 / 830.4 Laboratory Tests Past 24 Hrs 08/25/18 08/26/18 08/26/18 12:30 04:48 04:48 ESR 21 Hemoglobin A1c 8.1 H Triglycerides 60 Cholesterol 172 LDL Cholesterol 95 VLDL Cholesterol 12 HDL Cholesterol 65 POC Glucose 08/26/18 08/26/18 08/25/18 11:05 06:41 21:42 POC Glucose 212 H 166 H 183 H 08/25/18 16:15 POC Glucose 99 Discharge Activity: Return to Normal Activity Call your doctor if you observe: Fever of 101 or Higher, - - Recurrent headache, recurrent unilateral numbness, unilateral weakness, slurred speech, inability to get her words out, facial droop Home Medications: Medications to take at Discharge Albuterol IH (ProAir) [Proair Hfa] 2 puff INHALATION Q4H PRN PRN 11/01/16 Anastrozole [Arimidex] 1 mg PO DAILY 11/01/16 Ergocalciferol [Vitamin D] 50,000 unit PO TUFR 11/01/16 Meloxicam [Mobic] 15 mg PO DAILY 11/01/16 Multivitamins,Ther W-Minerals [Multivitamin With Minerals] 1 tab PO DAILY 11/01/16 Omeprazole [Prilosec] 20 mg PO BID 09/08/17 busPIRone [Buspar] 15 mg PO TID 11/01/16 fluoxetine 40 mg capsule 40 mg PO DAILY 02/03/17 Canagliflozin [Invokana] 300 mg PO DAILY 08/25/18 Empagliflozin [Jardiance] 25 mg PO DAILY 08/25/18 Fluticasone 0.05% [Flonase Nasal [place]] 2 spray NASAL DAILY 08/25/18 Insulin Degludec [Tresiba Flextouch U-100] 30 units SQ DAILY 08/25/18 Magnesium Oxide [Mag-Ox 400] 400 mg PO DAILY 08/25/18 buPROPion tablets [Wellbutrin tablets] 75 mg PO BID 08/25/18 metFORMIN (XR) [Glucophage Xr] 1,000 mg PO DAILY 08/25/18 Dexamethasone [Decadron] 4 mg PO Q6H #8 tab 08/26/18 Following Prescrptions Were Given to Patient: Dexamethasone [Decadron] 4 mg PO Q6H #8 tab Transmission Status: Received by [id number] Primary Care Physician: Jada Burch MD [Primary Care Provider] - Please follow up with your Primary Care Physician in: 1-2 weeks Please Follow Up With: Samina Jonas MD When: 6 weeks Disposition: Home Minutes spent on discharge:: 30 Medical Necessity - Tobacco Use Smoking Status: Never smoker Tobacco Use: Secondhand Meaningful Use Info Meaningful Use Diagnoses (Choose all that apply): None applicable Code Visit OBSV E&M: 94293 Observation care discharge
--- NOTE | 2018-08-26 14:57 | PCM.WORK.EX ---
Work/School Excuse Work/School Excuse for:: Patient Please excuse this person from:: Work From: 08/25/18 through: 08/27/18
== END 2018-08-26 16:05 | disposition home or self-care (01) ==
LOC: ED 14:07 → PCU 14:25
PROVIDERS: Psychiatry & Neurology Neurology; Emergency Provider Emergency Medicine; Family Provider Internal Medicine; PCP Internal Medicine; Visit Provider Internal Medicine
DX: G43.909 Migraine, unspecified, not intractable, without status migrainosus (principal); E66.01 Morbid (severe) obesity due to excess calories; I10 Essential (primary) hypertension; J45.909 Unspecified asthma, uncomplicated; R29.701 NIHSS score 1; F32.9 Major depressive disorder, single episode, unspecified; F41.9 Anxiety disorder, unspecified; M19.90 Unspecified osteoarthritis, unspecified site; E11.65 Type 2 diabetes mellitus with hyperglycemia; Z79.899 Other long term (current) drug therapy; Z79.4 Long term (current) use of insulin; Z68.41 Body mass index [BMI] 40.0-44.9, adult; Z71.3 Dietary counseling and surveillance; Z85.3 Personal history of malignant neoplasm of breast; Z92.21 Personal history of antineoplastic chemotherapy; Z92.3 Personal history of irradiation
CPT/HCPCS: 36415; 70450; 70544; 70549; 70553; 71045; 80048; 80061; 82962; 83036; 84484; 85025; 85610; 85652; 85730; 92610; 93005; 93306; 94762; 96365; 96366; 96375; 96376; 97165; 97802; 99218; 99285; A9575; Q9957; A4216; C8929; G0378

== ENCOUNTER 2018-12-24 09:30 | Outpatient (RCR) | payer MEDICARE, SELFPAY ==
[2018-12-01 15:44] VITALS: BMI 42.0
--- NOTE | 2018-12-03 08:00 | HP.OTEVAL ---
Patient's Visit Information ELLEN MARCH is a 53 year old F, referred to Occupational Therapy by Joe Mcgraw MD, with a diagnosis of right hand pain. Date of Evaluation: 12/02/18 Occupational Therapist: MIROSLAVA Quevedo/Fransico, CHT - Subjective Subjective: This 53 year old female was seen for OT eval with dx of right hand stiffness. pt states about three months ago she had a fall and cont. 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 pts states her fingers are numb . pt had chemo/radiation 2016 and had some numbness. states the numbness is more than what was her baseline. PT is scheduling a nerve conduction test. pt is right handed. pt is wearing right wrist cock-up brace at night. - ADLs Dressing: Pants, Shoes, Earrings Fasteners: Tie shoes, Buttons, Zippers, [employer], Belt Eating: Use silverware, Drink from glass Comments: compensation Bathing: Handle washcloth & soap, Squeeze shampoo bottle Toileting: Manage clothing Kitchen: Chop with knife, Peel fruits & vegetables, Open jars, Open bottle caps, Pour from pitcher, Lift saucepan, Take dish out of oven, Load/unload liquor rectifier Yard: Mow lawn - Pain right hand 4 Pain Intensity Range: 5 - ROM Forearm: right sup 60 left 75 Wrist: right 55/50 left 55/50 MP: R/L IF 65/65, MF 70/ 75, RF 70/ 80 LF 65/70 PIP: R/L IF 95/100, MF 90/100 RF 95/105 LF 40/70 DIP: R/L IF 30/65, MF 40/70 RF 25/60, LF 40/70 ROM Comments: right RD [address] 15 US 25 - Strength Heritage Consultant: right 40# left 40# Lateral Pinch: right 12# left 12# Tripod Pinch: right 12# left 14# - Sensation Thumb: right 4.56 left 3.84 Index: right 4.93 left 3.84 Middle: right 4.93 left 3.84 Ring: right 3.22 left 3.22 Little: right 2.83 left 2.83 - DASH-Disabilities of Arm, Shoulder& Hand DASH Sum: 41 - Quick DASH-Disab of Arm,Shoulder& Hand Quick DASH Score: 50.0000 - Goals Goal:: Pt will demo the ability to form a composite fist to gasp small/medium and large objects for ind. ADLS, IADLs. pt will report IND. use/manipulation of right hand with meal prep by d/c - Rehabilitation General Assessment: pt demo with sensory deficits throughout med. nerve distribution, and limited ability to form tight composite fist. Because of the limitations pt needs increase suppport to perform her daily occupations at a IND. level. PT would benefit from skilled OT services 1-2 xweek for 4 weeks to return pt to PLOF. Today therapist ed.pt on tendon glide, ROM of wrist/ forearm and use of heat to decrease stiffness. Therapist will cont to ed pt on median never glide and posture. and ex as needed. Pt demo understanding and agree to POC. Rehabilitation Potential: Good - Anticipated Interventions Anticipated Interventions: A/AAROM/PROM, Triggerpoint Release, Sensory Retraining, Modalities, Joint Protection/Energy Conservation, Ergonomic Education, Fine Motor Coord/Fredy, Sensory Stimulation - Visit Plan Frequency: 1x/Week Duration: 4 Weeks TEXT: Thank you for the opportunity to evaluate your patient. For Medicare and Medicare HMO plans, please review the plan of care and approve it. It will need to be FAXED BACK to us at [phone] for Medicare purposes. Please let me know if there are questions or concerns regarding this plan of care. Physician Signature: Date:
--- NOTE | 2018-12-24 09:49 | HP.OTDCSUM ---
HP - OT D/C Summary It has been my pleasure to treat ELLEN MARCH under orders from Joe Mcgraw MD, for the diagnosis of right hand pain for a total of 7 visit(s). Please see the following information for a summary of their discharge status. 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 right lateral pinch 11#. right tripod pinch 14#. IF MCP 70 PIP 104 DIP 60. MF MCP 80 PIP 95 DIP 60. RF MCP 80 PIP 90 DIP 57. LF MCP 75 PIP 84 DIP 60. pt demo the ability to form a composite fist and is completing her PRE with T-band ex. - Goals Patient Goals: Regain Mobility, Decrease Swelling/Stiffness, Improve Fine Motor Skills, Use Hand/Wrist/Arm Normally Again, Decrease Tingling/Numbness, Be More Independent in ADLS Goal:: Pt will demo the ability to form a composite fist to gasp small/medium and large objects for ind. ADLS, IADLs. pt will report IND. use/manipulation of right hand with meal prep by d/c - Plan Plan: D/C - D/C Information Discharge Comments: Pt completed 7 OT sessions- and has made great gains with her ROM and composite fist- pt met goals in OT and is D/C at this time. Pt is to cont with PRE and modalities as heat to mtg her strength and finger stiffness. If there are questions or concerns regarding this patient's occupational therapy, please fell free to call me at [phone]. Thank you for the referral of this patient. Sincerely, Dominique Pompa, OTR/L, CHT
== END 2018-12-24 19:00 | disposition home or self-care (01) ==
LOC: OT 09:30
PROVIDERS: Family Provider Internal Medicine; PCP Internal Medicine; Referring Provider Orthopaedic Surgery; Visit Provider Orthopaedic Surgery
DX: M25.641 Stiffness of right hand, not elsewhere classified (principal)
CPT/HCPCS: 97110; 97140; 97166; 97530

== ENCOUNTER 2019-07-19 21:47 | Emergency (ER) | payer MEDICARE, MEDICAID, SELFPAY ==
[2018-12-01 15:44] VITALS: BMI 42.0
[2019-07-19 21:47] VITALS: BP 138/84; PULSE 81; RESP 15; TEMP 36.6; O2SAT 97; BMI 43.4
--- NOTE | 2019-07-19 22:10 | RAD_ITS ---
STUDY: X-RAY - RIGHT FOOT CLINICAL: Female, 53 years old. Pain after falling. TECHNIQUE: 3 view(s) of the foot. COMPARISON: None. FINDINGS: No visible fracture. No osseous destruction. Plantar calcaneal spur. Alignment anatomic. Mild degenerative changes. Soft tissues unremarkable. RAD/Foot min 3 Views IMPRESSION: No acute osseous abnormality. Electronically Signed: Elia Bedoya, at 22:45 EDT Tel , Service support ,
--- NOTE | 2019-07-19 22:48 | ED.DCSUM_ITS ---
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 - Past Medical History (1) Anxiety and depression Status: Chronic (2) Diabetes type 2, uncontrolled Status: Chronic Comment: Has increased metformin to 500mg 3 pills daily, has been drinking less soda, and trying to be active. BG readings now in the 150- 170 range. (3) Dyslipidemia Status: Chronic (4) Migraine Status: Chronic (5) CVA (cerebral vascular accident) Status: Ruled-out Past Medical History - Allergies and Home Meds Allergies/Adverse Reactions: Allergies atropine [From Lomotil] Allergy (Severe, Verified 07/19/19 21:47) Hives diphenoxylate [From Lomotil] Allergy (Severe, Verified 07/19/19 21:47) Hives SURGICAL ROSA Allergy (Uncoded 07/19/19 21:47) Swelling Primary Care Physician: Jada Burch MD [Primary Care Provider] - Lives: Spouse/ Significant Other Smoking Status: Never smoker Review of Systems Musculoskeletal: Reports: Extremity Pain Skin: Denies: Rash, Wounds Neurological: Denies: Headache, Weakness, Numbness Physical Exam Vital Signs/Narrative: Vital Signs Temp Pulse Resp BP Pulse Ox 07/19/19 21:47 97.9 F 81 15 138/84 H 97 - Extremity Exam Right Toe: Contusion - Ecchymosis in the proximal aspect of the right great toe and into the metatarsophalangeal joint area. Skin intact., Limited ROM - Due to pain, - - Tender especially at the dorsum of the proximal phalanx of the right great toe. No other bony tenderness. No nail damage or subungual hematoma.. Negative for: Deformity General: Well nourished, Well developed, - - NAD Head: Normocephalic, Atraumatic Skin: Normal color, No rash, Trauma - Bruising as above. Skin intact right foot. Neurological: Alert, Oriented x3, Cranial nerves II-XII grossly intact, Normal Strength, Normal Sensation Psychological: Normal affect, Normal Mood Diagnostic/Tx/Re-eval Clinical Impression(s) from Imaging Studies Foot X-Ray 07/19/19 22:10 IMPRESSION: No acute osseous abnormality. Electronically Signed: Elia Bedoya, at 22:45 EDT Tel , Service support , - Medical Decision Making Radiology read the x-ray is negative, however I think that there is a nondisplaced fracture at the distal aspect of the proximal phalanx of the right great toe, where the patient is most tender. She was referred to her orthope dist, placed in a postop shoe, she declined analgesic prescription. ED Disposition - Plan for ED Patient: Disposition: Home or Assisted Living Diagnosis: Closed fracture of proximal phalanx of right great toe Instructions: ED Fx Toe Closed Referrals: Jada Burch MD [Primary Care Provider] - Joe Mcgraw MD [STAFF PHYSICIAN] - 1-2 Weeks
== END 2019-07-19 23:09 | disposition home or self-care (01) ==
PROVIDERS: Emergency Provider Emergency Medicine; PCP Internal Medicine
DX: S92.414A Nondisplaced fracture of proximal phalanx of right great toe, initial encounter for closed fracture (principal); W01.0XXA Fall on same level from slipping, tripping and stumbling without subsequent striking against object, initial encounter; Y93.9 Activity, unspecified; Y92.9 Unspecified place or not applicable; F32.9 Major depressive disorder, single episode, unspecified; F41.9 Anxiety disorder, unspecified; E11.9 Type 2 diabetes mellitus without complications; E78.5 Hyperlipidemia, unspecified; Z86.73 Personal history of transient ischemic attack (TIA), and cerebral infarction without residual deficits; Z79.4 Long term (current) use of insulin; Z79.84 Long term (current) use of oral hypoglycemic drugs; Z79.899 Other long term (current) drug therapy
CPT/HCPCS: 73630; 99283; A4216

== ENCOUNTER 2019-12-12 01:11 | Emergency (ER) | payer MEDICARE, MEDICAID, SELFPAY ==
[2019-12-12 01:12] VITALS: BP 154/87; PULSE 89; RESP 16; TEMP 36.7; O2SAT 96; BMI 92.0
--- NOTE | 2019-12-12 01:30 | ED.DCSUM_ITS ---
History of Present Illness Chief Complaint: Bite Informant: Patient Onset: Hours - 5 Context: Gradual Onset - after being bitten by a flying insect Quality: tingling, irritated Location: left wrist, left calf Current Severity: Mild Maximum Severity: Mild Worsened by: nothing Relieved by: nothing but has tried no medications/treatments Associated Symptoms: none Narrative: Patient states she was outside grilling food this evening and she saw small brown flying insect that landed on her left lower leg and her left forearm and she felt a pinch, it stinging her several times. It swelled a little in those areas and became red, her children convinced her to come to the ER for evaluation. She denies major itching, or major pain. No fevers or chills. No shortness of breath, lightheadedness, or any other acute systemic symptoms. - Past Medical History (1) Breast cancer Status: Resolved (2) Anxiety and depression Status: Chronic (3) Diabetes type 2, uncontrolled Status: Chronic Comment: Has increased metformin to 500mg 3 pills daily, has been drinking less soda, and trying to be active. BG readings now in the 150- 170 range. (4) Dyslipidemia Status: Chronic (5) Migraine Status: Chronic (6) CVA (cerebral vascular accident) Status: Ruled-out Past Medical History - Allergies and Home Meds Allergies/Adverse Reactions: Allergies atropine [From Lomotil] Allergy (Severe, Verified 12/12/19 01:17) Hives diphenoxylate [From Lomotil] Allergy (Severe, Verified 12/12/19 01:17) Hives SURGICAL ROSA Allergy (Uncoded 12/12/19 01:17) Swelling Primary Care Physician: Jada Burch MD [Primary Care Provider] - Surgical History: mastectomy Lives: With Family Smoking Status: Never smoker Review of Systems General: Denies: Chills, Fever, Sweats Gastrointestinal: Denies: Nausea, Vomiting Musculoskeletal: Denies: Myalgias, Arthralgias, Swelling, Extremity Pain Skin: Reports: - - Bites. See HPI.. Denies: Abscess Neurological: Denies: Headache, Weakness, Numbness Physical Exam Vital Signs/Narrative: Vital Signs Temp Pulse Resp BP Pulse Ox 12/12/19 01:12 98.1 F 89 16 154/87 H 96 Inital Vital Signs reviewed: Yes General: Well nourished, Well developed, No Acute Distress - Well-appearing, no distress, conversive in full sentences Head: Normocephalic, Atraumatic Eyes: Perrl, EOMI ENT: Moist mucous membranes, No rhinorrhea Neck: Supple, Nontender Respiratory: No distress Extremities: Nontender, No edema, - - Full range of motion throughout all joints of all 4 extremities. Skin: No Trauma, - - There are 2 coalescent wheal and flare lesions with central bite maradiaga on the lateral proximal left calf, and one wheal and flare on the volar radial left wrist. All nontender, without fluctuance, or expressible discharge. No lymphangitis. Neurological: Alert, Oriented x3, Cranial nerves II-XII grossly intact, Normal Strength, Normal Sensation, Normal Gait Psychological: Normal affect, Normal Mood Diagnostic/Tx/Re-eval - Medical Decision Making Patient is reassured. There is no evidence of a systemic reaction here. These are expected local wheal and flare reactions from a benign insect bite. She was given an ice pack to put on the wounds, I recommend using hydrocortisone 1% 2-3 times daily as needed for discomfort or itching, and we discussed reasons to return. She is comfortable with that plan and has hydrocortisone cream at home. ED Disposition - Plan for ED Patient: Disposition: Home or Assisted Living Diagnosis: Insect stings Instructions: ED BITE Mosquito Referrals: Jada Burch MD [Primary Care Provider] - As Needed Additional Instructions: Hydrocortisone cream may be applied to the affected areas 2-3 times daily as needed for discomfort, redness, swelling, itching. Return to the ER for fevers, red streaking going up the affected extremity, and/or abscess formation (pus pouring out of a very painful bite area).
== END 2019-12-12 01:38 | disposition home or self-care (01) ==
LOC: ED 01:35
PROVIDERS: Emergency Provider Emergency Medicine; PCP Internal Medicine
DX: S80.862A Insect bite (nonvenomous), left lower leg, initial encounter (principal); S50.862A Insect bite (nonvenomous) of left forearm, initial encounter; W57.XXXA Bitten or stung by nonvenomous insect and other nonvenomous arthropods, initial encounter; Y93.9 Activity, unspecified; Y92.9 Unspecified place or not applicable; E11.9 Type 2 diabetes mellitus without complications; E78.5 Hyperlipidemia, unspecified; F41.9 Anxiety disorder, unspecified; F32.9 Major depressive disorder, single episode, unspecified; G43.909 Migraine, unspecified, not intractable, without status migrainosus; Z85.3 Personal history of malignant neoplasm of breast; Z79.4 Long term (current) use of insulin; Z79.899 Other long term (current) drug therapy
CPT/HCPCS: 99282

== ENCOUNTER 2022-02-22 11:30 | Outpatient (RCR) | payer MEDICARE, MEDICAID, SELFPAY ==
--- NOTE | 2021-12-24 08:43 | HP.PTEVAL_ITS ---
Patient's Visit Information ELLEN MARCH is a 56 year old F referred to Physical Therapy by Dr. Trinh Wong DO with a diagnosis of Right Knee Pain. Date of Evaluation: 12/24/21 Physical Therapist: Jeri Wen DPT - Visit Plan Frequency: 2x /Week Duration: 4 Weeks Plan: Aquatic PT- focus on LE and core strength/stabilization with functional mobility. - Subjective Right knee has been bothering her for a long time. The stairs are getting worse as well as walking distances- went to see Dr. Wong- she told her to strengthen the muscle- she has had prior x-rays- very little cartilage and OA. No injection but she its taking Meloxicam regularly for all her aches and pains. Pain is located in the medial and lateral sides of the knees- does radiates into the ankle and the hip. In the AM she is pretty good but the longer she is on it the more painful it becomes. Worst: 8/10 Agg: stairs, standing, walking. She needs to keep moving hard to be one position to long. Eases: hot tub bath Best: 0/10. Describes the pain as stabbing pain with walking- but most of the time its achy. Hard to get up after sitting for long periods of time. No N/T in the toes. Does have back pain but does not feel that they are related as she has had a lot of breast surgeries. She is pretty active. Work: [employer]- bending, lifting stooping and stairs. If she keeps her knees bent on the stairs she is better. It does have popping, clicking and little bit of buckling under her. She has fallen on her knees 3x- last was 3 years ago. Sleep: disturbed- hard to get comfortable- no specific position. She has been loosing weight but feels that her thigh girth and varicose veins are hindering her knee. No bowel or bladder issues. PMHx/Meds: all current from ED Visit 12/13. - Objective Posture: FH, RS- can correct with verbal cues but does not maintain. Gait: slightly antalgic- decreased stance on right LE- no AD. HR/TR: able with UE A no discomfort. SLS: 2 sec then puts other foot on floor to right herself. Stairs: asc: 2 HR- does not achieve full extension stance, Desc: 2 HR- poor control. Palpation: tender along medial joint line and posterior lateral joint. ROM: 10-120. Sensation: WFL to gross touch Bilateral. Strength: Core: fair minus, Hip: 4/5 throughout, Knee: 4+/5 Ankle: 5/5. Flex: HS: moderate, Gastroc: moderate - Special Tests R Knee Santiago - Meniscus: Positive R Knee Valgus - MCL: Positive R Knee Varus - LCL: Positive R Knee Patellar Grind - PFS: Positive - Balance/Special Test Scores Lower Extremity Functional Score: 41 - Goals Goal 1:: Patient will be I with HEP and progression Goal Time Frame: 4-6 Weeks Goal 2:: Patient will asc/desc 8 recip with 1 HR and good technique Goal Time Frame: 4-6 Weeks Goal 3:: Patient will SLS 5 sec without LOB Goal Time Frame: 4-6 Weeks Goal 4:: Patient will maintain proper posture t/o tx session to demo increased core s/s Goal Time Frame: 4-6 Weeks Goal 5:: Patient will report 80% improvement Goal Time Frame: 4-6 Weeks - Rehabilitation Potential Physical Therapy Diagnosis: Patient presents with hypomobility- she has decreased LE and core strength/stabilization, flex and muscular endurance leading to poor proprioception and increased pain with ADL's. Rehabilitation Potential: Fair - Anticipated Interventions Patient/Client Instruction: Educate patient on: Benefits of Fitness Program Therapeutic Exercise to Include: Strength training, Endurance training, Balance training, Coordination, Agility training, Body mechanics, Postural training, Flexibilty training, Gait and locomotor training, Neuromotor development, In an aquatic setting, Dynamic Lumbar Stabilization, Scapular Strength/Stabilization For the Purpose of:: To improve muscle performance and motor function Thank you for the opportunity to evaluate your patient. For Medicare and Medicare HMO plans, please review the plan of care and approve it. It will need to be FAXED BACK to us at [phone] for Medicare purposes. For Medicare only, by signing this I certify the plan of care. Please let me know if there are questions or concerns regarding this plan of care. Physician Signature: __Date:
--- NOTE | 2022-02-22 12:01 | HP.PTDCSUM ---
It has been my pleasure to treat ELLEN MARCH referred by Dr. Trinh Wong DO, with the diagnosis of Right Knee Pain for a total of 13 visit(s). Discharge Date: 02/22/22 Please see the following information for a summary of their discharge status. Subjective: Pt really liked the pool. Her R knee feels food today. 4/10 R knee pain. She has some places to check their pools out to be do AT there. She feels comfortable doing her exercises on her own now. She has been doing some exercises at home as well. RLE Pain Intensity (Out of 10): 4 Lumbar Spine Pain Intensity (Out of 10): 0 % Improvement: 60 Objective/Function: Stairs: up and down recip with 1 hand rail with only slight hesitancy descending the step. SLB R 3 seconds catarina... average 2.5 seconds Goal 1:: Patient will be I with HEP and progression Goal Progress: Goal Met Goal 2:: Patient will asc/desc 8 recip with 1 HR and good technique Goal Progress: Goal Met Goal 3:: Patient will SLS 5 sec without LOB Goal Progress: Progressing Goal 4:: Patient will maintain proper posture t/o tx session to demo increased core s/s Goal Progress: Goal Met Goal 5:: Patient will report 80% improvement Goal Progress: Progressing Plan: DC PT to HEP and I AT routine at pool of choice. Discharge Comments: DC PT to I AT routine If there are questions or concerns regarding this patient's physical therapy, please feel free to call me at [phone]. Thank you for the referral of this patient. Sincerely, Comfort Go, MPT Balance/Gait/Functional tests - Balance/Special Test Scores Lower Extremity Functional Score: 66
== END 2022-02-22 14:04 | disposition home or self-care (01) ==
LOC: PT 11:30
PROVIDERS: PCP Internal Medicine; Referring Provider Orthopaedic Surgery; Visit Provider Orthopaedic Surgery
DX: M25.561 Pain in right knee (principal); G89.29 Other chronic pain
CPT/HCPCS: 97113; 97161; 97530